=== PATIENT | male | born 1950 | race Caucasian/White ===

== ENCOUNTER 2023-07-01 19:13 | Observation (INO) | payer MEDICARE, OTHER ==
[2023-07-01] MEDS ORDERED: MORPHINE SULFATE 4 MG/ML SYRINGE IVP STA (19:52)
--- NOTE | 2023-07-01 19:57 | ED ---
Chest Pain HPI - General Chief Complaint: Chest Pain Stated Complaint: Chest Pain Time Seen by Provider: 07/01/23 19:16 Source: patient, RN notes reviewed Mode of arrival: EMS Limitations: no limitations - History of Present Illness Initial Comments: This is a 73-year-old male who presents to the emergency department for chest pain. Patient is a transfer to our facility from [facility]. He presented there this afternoon with left-sided chest pain that began yesterday. This is left-sided with a squeezing/tightness sensation. Patient went to work this morning and the episodes seemed to be getting progressively worse, prompting him to go to the emergency department. He has noticed that symptoms seem to worsen with exertion. There are some episodes of numbness to the left arm as well as minor shortness of breath. Denies any history of heart attacks, however he does have nitroglycerin at home that was prescribed for coronary artery disease and spasms. He took this with relief in symptoms. Additionally, he had a cardiac catheterization at [facility] earlier this year that demonstrated coronary artery "narrowing and spasms". He also had a nuclear stress test and echocardiogram done on 02/02/23 at [facility] that had no notable irregularities. He does continue to follow with [facility] cardiology. The providers at [facility] were concerned with the patient's symptoms, age, and history of CAD, and advised he be transferred to a facility with higher level of care for cardiac evaluation. They attempted to transfer the patient to [facility] where he received the cardiac catheterization, however the transfer was declined there due to "lack of capacity" and the patient then requested transfer here. EKG, chest x-ray, and blood work at [facility] did not demonstrate any notable findings. Patient is not currently taking any blood thinners. He did have nitropaste applied before leaving [facility] at 1710, which the patient states was helpful. MD Complaint: chest pain - Related Data Home Medications Medication Instructions Recorded Confirmed Aspirin EC [Ecotrin Low Dose] 81 mg PO DAILY 07/01/23 07/01/23 Atorvastatin [Lipitor] 20 mg PO DAILY 07/01/23 07/01/23 Isosorbide Mononitrate ER [Imdur] 30 mg PO DAILY 07/01/23 07/01/23 Magnesium Oxide [Mag-Ox] 400 mg PO BID 07/01/23 07/01/23 Metoprolol Tartrate [Lopressor] 50 mg PO BID 07/01/23 07/01/23 Ondansetron Odt [Zofran Odt] 4 mg PO Q8H PRN 07/01/23 07/01/23 glipiZIDE [Glucotrol] 5 mg PO AC-BRKFST 07/01/23 07/01/23 lisinopriL [Zestril] 20 mg PO BID 07/01/23 07/01/23 Allergies Allergy/AdvReac Type Severity Reaction Status Date / Time No Known Allergies Allergy Unverified 07/01/23 21:09 Review of Systems ROS Statement: Those systems with pertinent positive or pertinent negative responses have been documented in the HPI. ROS Other: All systems not noted in ROS Statement are negative. General Exam Limitations: no limitations General appearance: alert, in no apparent distress Head exam: Present: atraumatic, normocephalic, normal inspection Respiratory exam: Present: normal lung sounds bilaterally. Absent: respiratory distress, wheezes, rales, rhonchi, stridor Cardiovascular Exam: Present: regular rate, normal rhythm, normal heart sounds. Absent: systolic murmur, diastolic murmur, rubs, gallop, clicks Neurological exam: Present: alert, oriented X3, CN II-XII intact Psychiatric exam: Present: normal affect, normal mood Skin exam: Present: warm, dry, intact, normal color. Absent: rash Chest Pain MDM - MDM This is a 73-year-old male who presents to the emergency department for chest pain. Was pt. sent in by a medical professional or institution? @ -No Did you speak to anyone other than the patient for history? @ -No Did you review nursing and triage notes? @ -Yes, and I agree, it is accurate with regards to the patient's symptoms. Were old charts reviewed? @ -Yes, records sent with the patient from [facility]. This discussed the patient's history, including why he presented there today, his blood work, EKG, and chest x-ray results. Blood work, EKG, and chest x-ray were unremarkable. Differential Diagnosis? @ -Differential Chest Pain: Stable Angina, Unstable Angina, STEMI, NSTEMI Aortic Dissection, Pneumothorax, Musculoskeletal, Esophageal Spasm GERD, Cholecystitis, Pancreatitis, Zoster, this is not meant to be an all-inclusive list. EKG interpreted by me (3pts min.)? @ -EKG interpreted by me demonstrating the following: Sinus rhythm. Ventricular rate 62 bpm, MD interval 192 ms, QRS duration 108 ms, QTC 428 ms. X-rays interpreted by me (1pt min.)? @ -Not obtained CT interpreted by me (1pt min.)? @ -Not obtained U/S interpreted by me (1pt. min.)? @ -Not obtained What testing was considered but not performed? (CT, X-rays, U/S, labs)? Why? @ -None What meds were considered but not given? Why? @ -None Did you discuss the management of the patient with other professionals? @ -Yes, Sharlene Pearl with [facility], who accepts the patient for admission. Did you reconcile home meds? @ -Yes Was smoking cessation discussed for >3mins.? @ -No Was critical care preformed (if so, how long)? @ -No Were there social determinants of health that impacted care today? How? (Homelessness, low income, unemployed, alcoholism, drug addiction, transportation, low edu. Level, literacy, decrease access to med. care, half-way, rehab)? @ -No Was there de-escalation of care discussed even if they declined? (Discuss DNR or withdrawal of care, Hospice)? @ -No What co-morbidities impacted this encounter? (DM, HTN, Smoking, COPD, CAD, Cancer, CVA, Hep., AIDS, mental health diagnosis, sleep apnea, morbid obesity)? @ -CAD, DM, HLD, HTN Was patient admitted / discharged? @ -Admitted. I did repeat blood work here, including cardiac enzymes. Troponin was found to be negative. Patient did have nitro paste on, which was applied shortly prior to arrival from [facility]. He did find that this was controlling his chest pain well. All outside records, including blood work, chest x-ray, EKG, and documentation were reviewed. Blood work, EKG, and chest x-ray were unremarkable. Repeat EKG obtained here as well revealing no ST segment elevations or depressions. His heart score is approximately 6. Patient was admitted to medicine for further evaluation of chest pain and ACS rule out. Consult placed for cardiology. Undiagnosed new problem with uncertain prognosis? @ -None Drug Therapy requiring intensive monitoring for toxicity (Heparin, Nitro, Insulin, Cardizem)? @ -None Were any procedures done? @ -None Diagnosis/symptom? @ -Chest pain Acute, or Chronic, or Acute on Chronic? @ -Acute Uncomplicated (without systemic symptoms) or Complicated (systemic symptoms)? @ -Uncomplicated Side effects of treatment? @ -None Exacerbation, Progression, or Severe Exacerbation] @ -Not applicable Poses a threat to life or bodily function? @ -Yes This case was discussed in detail with the attending ED physician, Dr. Gonzalez. Presentation, findings, and treatment plan discussed in detail as well. Disposition Clinical Impression: Chest pain Disposition: ADMITTED IP TO THIS HOSP
[2023-07-01 20:34] LABS: Glucose,Whole Blood 96 mg/dL (70-110)
[2023-07-01] MEDS ORDERED: MORPHINE SULFATE 4 MG/ML SYRINGE IV PRN (21:18)
[2023-07-01] MEDS ORDERED: ONDANSETRON 4 MG/2 ML VIAL IVP PRN (21:18)
[2023-07-01] MEDS ORDERED: ACETAMINOPHEN TAB 325 MG TAB PO PRN (21:18)
[2023-07-01] MEDS ORDERED: HYDROcodone/APAP 5-325MG 1 EACH TAB PO PRN (21:18)
[2023-07-01] MEDS ORDERED: NALOXONE 0.4 MG/ML 1 ML VIAL IV PRN (21:18)
[2023-07-01] MEDS ORDERED: ONDANSETRON ODT 4 MG TAB PO PRN (21:20)
[2023-07-01 23:08] VITALS: RESP 16
[2023-07-02 00:43] LABS: Basophils % (A) 1 %; Eosinophils # (A) 0.2 k/uL (0-0.7); Eosinophils % (A) 3 %; HCT 44.4 % (39.0-53.0); HGB 14.5 gm/dL (13.0-17.5); Lymphocytes # (A) 2.3 k/uL (1.0-4.8); Lymphocytes % (A) 41 %; MCH 28.7 pg (25.0-35.0); MCHC 32.7 g/dL (31.0-37.0); MCV 87.8 fL (80.0-100.0); Monocytes # (A) 0.3 k/uL (0-1.0); Monocytes % (A) 6 %; Neutrophils # (A) 2.7 k/uL (1.3-7.7); Neutrophils % (A) 49 %; Platelet Count 180 k/uL (150-450); RBC 5.06 m/uL (4.30-5.90); RDW 14.6 % (11.5-15.5); WBC 5.6 k/uL (3.8-10.6)
[2023-07-02 02:14] LABS: INR 1.1 (<1.2); Partial Thromboplastin Time 23.6 sec (22.0-30.0); Prothrombin Time 11.6 sec (10.0-12.5)
[2023-07-02] MEDS ORDERED: glipiZIDE 5 MG TAB PO SCH (07:30)
[2023-07-02 08:08] LABS: Glucose,Whole Blood 114 mg/dL (70-110)
[2023-07-02 08:45] VITALS: PULSE 79; TEMP 98.2
[2023-07-02] MEDS ORDERED: ATORVASTATIN 20 MG TAB PO SCH (09:00)
[2023-07-02] MEDS ORDERED: ISOSORBIDE MONONITRATE ER 30 MG TAB.ER.24H PO SCH (09:00)
[2023-07-02] MEDS ORDERED: MAGNESIUM OXIDE 400 MG TAB PO SCH (09:00)
[2023-07-02] MEDS ORDERED: lisinopriL 20 MG TAB PO SCH (09:00)
[2023-07-02] MEDS ORDERED: METOPROLOL TARTRATE 50 MG TAB PO SCH (09:00)
[2023-07-02] MEDS ORDERED: ASPIRIN 81 MG PO SCH (09:00)
--- NOTE | 2023-07-02 09:10 | P.HPIM ---
History of Present Illness Patient is a pleasant 73-year-old male came in with complaints of chest pressure-like sensation moderate severity which improved now. The pain radiates to the left arm denied any diaphoresis nausea lightheadedness chest pain is not associated with deep breathing or coughing. Patient had cardiac catheterization at [facility] earlier this year which demonstrative coronary vasospasm patient also had a stress test earlier this year. Cardiac catheterization reports are not available from the hospital at this time chest x-ray did not show any significant abnormality troponins are negative. Patient has mildly elevated creatinine and although patient was told has stage III chronic kidney disease, with mild hyponatremia is a possibility of for dehydration and acute renal failure because of which I'm starting him on IV fluids until his discharge. Patient is on Imdur 30 mg along with lisinopril, beta elen and a statin. REVIEW OF SYSTEMS: CONSTITUTIONAL: No fever, no malaise, no fatigue. HEENT: No recent visual problems or hearing problems. Denied any sore throat. CARDIOVASCULAR: No orthopnea, PND, no palpitations, no syncope. PULMONARY: No shortness of breath, no cough, no hemoptysis. GASTROINTESTINAL: No diarrhea, no nausea, no vomiting, no abdominal pain. NEUROLOGICAL: No headaches, no weakness, no numbness. HEMATOLOGICAL: Denies any bleeding or petechiae. GENITOURINARY: Denies any burning micturition, frequency, or urgency. MUSCULOSKELETAL/RHEUMATOLOGICAL: Denies any joint pain, swelling, or any muscle pain. ENDOCRINE: Denies any polyuria or polydipsia. The rest of the 14-point review of systems is negative. PHYSICAL EXAMINATION: GENERAL: The patient is alert and oriented x3, not in any acute distress. Obese HEENT: Pupils are round and equally reacting to light. EOMI. No scleral icterus. No conjunctival pallor. Normocephalic, atraumatic. No pharyngeal erythema. No thyromegaly. CARDIOVASCULAR: S1 and S2 present. No murmurs, rubs, or gallops. PULMONARY: Chest is clear to auscultation, no wheezing or crackles. ABDOMEN: Soft, nontender, nondistended, normoactive bowel sounds. No palpable organomegaly. MUSCULOSKELETAL: No joint swelling or deformity. EXTREMITIES: No cyanosis, clubbing, or pedal edema. NEUROLOGICAL: Gross neurological examination did not reveal any focal deficits. SKIN: No rashes. Assessment and plan -Chest pressure: Possibly vasospastic angina had a recent cardiac catheterization, patient may need titration of imdur or addition of calcium channel elen possibly can be discharged if cleared by cardiology today. Patient denied any CHF history doesn't take any diuretics at home -Chronic kidney disease stage III possible diabetic nephropathy, may have a mild acute renal failure patient was started on IV fluids. -Type 2 diabetes mellitus: Resume home medications -Hypertension -Hyperlipidemia If cleared by cardiology patient will be discharged today Past Medical History Past Medical History: Chest Pain / Angina, Diabetes Mellitus, Hypertension History of Any Multi-Drug Resistant Organisms: None Reported Past Surgical History: Bladder Surgery Past Psychological History: No Psychological Hx Reported Smoking Status: Former smoker Past Alcohol Use History: None Reported Past Drug Use History: None Reported Medications and Allergies Home Medications Medication Instructions Recorded Confirmed Type Aspirin EC [Ecotrin Low Dose] 81 mg PO DAILY 07/01/23 07/01/23 History Atorvastatin [Lipitor] 20 mg PO DAILY 07/01/23 07/01/23 History Isosorbide Mononitrate ER [Imdur] 30 mg PO DAILY 07/01/23 07/01/23 History Magnesium Oxide [Mag-Ox] 400 mg PO BID 07/01/23 07/01/23 History Metoprolol Tartrate [Lopressor] 50 mg PO BID 07/01/23 07/01/23 History Ondansetron Odt [Zofran ODT] 4 mg PO Q8H PRN 07/01/23 07/01/23 History glipiZIDE [Glucotrol] 5 mg PO AC-BRKFST 07/01/23 07/01/23 History lisinopriL [Zestril] 20 mg PO BID 07/01/23 07/01/23 History Allergies Allergy/AdvReac Type Severity Reaction Status Date / Time No Known Allergies Allergy Unverified 07/01/23 21:09 Physical Exam Vitals: Vital Signs Temp Pulse Resp BP Pulse Ox 07/02/23 07:45 98.2 F 79 16 169/87 97 07/02/23 00:50 97.5 F L 72 16 131/76 97 07/01/23 22:58 97.9 F 65 16 167/75 97 Intake and Output 10/21/23 10/22/23 10/22/23 22:59 06:59 14:59 Other: Voiding Method Toilet # Voids 1 Weight 235 kg Results CBC & Chem 7: 07/01/23 23:35 07/01/23 00:00 Labs: Abnormal Lab Results - Last 24 Hours (Table) 07/01/23 07/02/23 Range/Units 00:00 08:00 Sodium 136 L (137-145) mmol/L BUN 35 H (9-20) mg/dL Glucose 173 H (74-99) mg/dL POC Glucose (mg/dL) 114 H (70-110) mg/dL Total Protein 6.2 L (6.3-8.2) g/dL
[2023-07-02 10:52] VITALS: BP 164/87
[2023-07-02 11:46] LABS: Glucose,Whole Blood 100 mg/dL (70-110)
[2023-07-02] MEDS ORDERED: amLODIPine 5 MG TAB PO SCH (14:45)
--- NOTE | 2023-07-02 14:45 | P.CRDCN ---
History of Present Illness Consult date: 07/02/23 History of present illness: HISTORY OF PRESENTING ILLNESS Patient is a 73-year-old male who follows up with product technician at [facility] in [place]. In February 2023 had a heart catheterization which did not show any significant obstructive coronary artery disease. Patient lives in [place]. This time he initially presented to [facility] with substernal chest pain. His pain slightly got better with sublingual nitroglycerin at [facility] due to which she was sent to [facility]. On admission he ECG does not show any significant ST-T wave changes that were diagnostic for ischemia. He is normal sinus rhythm. His labs were essentially within normal limits. His 3 troponins have been negative. His noticed to be hypertensive. On today's review of history patient reported that he has been hypertensive lately. He is scheduled to see his product technician in July 12 week. REVIEW OF SYSTEMS 14 point review of system is negative except what is mentioned above in HPI. PHYSICAL EXAMINATION Vital signs reviewed. Head: Normocephalic. Eyes: Sclerae nonicteric. Neck: Brisk carotid upstroke, no jugular venous distention. Lungs: Clear to auscultation. Heart: Regular rate and rhythm, S1-S2, no S3, no murmur or rub. Abdomen: Soft nontender, positive bowel sounds no organomegaly. Extremities: No edema, intact distal pulses. Neuro: Alert, oritented, no focal deficits ASSESSMENT Stable angina No evidence of acute coronary syndrome Mild nonobstructive coronary artery disease Essential hypertension next and dyslipidemia Obesity PLAN Continue aspirin 81 mg, metoprolol 50 mg twice a day Increase atorvastatin 40 mg daily Continue lisinopril 20 mg twice a day Continue Imdur 30 mg daily Add amlodipine 5 mg daily for better blood pressure control Follow-up with his product technician since her to be discharged from cardiac [facility] Past Medical History Past Medical History: Chest Pain / Angina, Diabetes Mellitus, Hypertension History of Any Multi-Drug Resistant Organisms: None Reported Past Surgical History: Bladder Surgery Past Psychological History: No Psychological Hx Reported Smoking Status: Former smoker Past Alcohol Use History: None Reported Past Drug Use History: None Reported Medications and Allergies Home Medications Medication Instructions Recorded Confirmed Type Aspirin EC [Ecotrin Low Dose] 81 mg PO DAILY 07/01/23 07/01/23 History Atorvastatin [Lipitor] 20 mg PO DAILY 07/01/23 07/01/23 History Isosorbide Mononitrate ER [Imdur] 30 mg PO DAILY 07/01/23 07/01/23 History Magnesium Oxide [Mag-Ox] 400 mg PO BID 07/01/23 07/01/23 History Metoprolol Tartrate [Lopressor] 50 mg PO BID 07/01/23 07/01/23 History Ondansetron Odt [Zofran ODT] 4 mg PO Q8H PRN 07/01/23 07/01/23 History glipiZIDE [Glucotrol] 5 mg PO AC-BRKFST 07/01/23 07/01/23 History lisinopriL [Zestril] 20 mg PO BID 07/01/23 07/01/23 History Allergies Allergy/AdvReac Type Severity Reaction Status Date / Time No Known Allergies Allergy Unverified 07/01/23 21:09 Physical Exam Vitals: Vital Signs Temp Pulse Resp BP Pulse Ox 07/02/23 10:36 164/87 07/02/23 08:00 79 16 07/02/23 07:45 98.2 F 79 16 169/87 97 07/02/23 00:50 97.5 F L 72 16 131/76 97 07/01/23 22:58 97.9 F 65 16 167/75 97 Intake and Output 07/01/23 07/02/23 07/02/23 22:59 06:59 14:59 Other: Voiding Method Toilet # Voids 1 Weight 235 kg Results 07/01/23 23:35 07/01/23 00:00 Cardiac Enzymes 07/01/23 07/01/23 07/02/23 Range/Units 00:00 23:35 02:04 AST 23 (17-59) U/L Troponin I <0.012 <0.012 (0.000-0.034) ng/mL 07/02/23 Range/Units 05:41 AST (17-59) U/L Troponin I <0.012 (0.000-0.034) ng/mL Coagulation 07/01/23 Range/Units 23:35 PT 11.6 (10.0-12.5) sec APTT 23.6 (22.0-30.0) sec CBC 07/01/23 Range/Units 23:35 WBC 5.6 (3.8-10.6) k/uL RBC 5.06 (4.30-5.90) m/uL Hgb 14.5 (13.0-17.5) gm/dL Hct 44.4 (39.0-53.0) % Plt Count 180 (150-450) k/uL Comprehensive Metabolic Panel 07/01/23 Range/Units 00:00 Sodium 136 L (137-145) mmol/L Potassium 4.4 (3.5-5.1) mmol/L Chloride 103 (98-107) mmol/L Carbon Dioxide 25 (22-30) mmol/L BUN 35 H (9-20) mg/dL Creatinine 1.20 (0.66-1.25) mg/dL Glucose 173 H (74-99) mg/dL Calcium 9.4 (8.4-10.2) mg/dL AST 23 (17-59) U/L ALT 20 (4-49) U/L Alkaline Phosphatase 57 (38-126) U/L Total Protein 6.2 L (6.3-8.2) g/dL Albumin 3.5 (3.5-5.0) g/dL Current Medications Generic Name Dose Route Start Last Admin Trade Name Freq PRN Reason Stop Dose Admin Acetaminophen 650 mg 07/01/23 21:18 Acetaminophen Tab 325 Mg Tab PO Q6HR PRN Mild Pain or Fever > 100.5 Hydrocodone Bitart/Acetaminophen 1 each 07/01/23 21:18 Hydrocodone/Apap 5-325mg 1 Each Tab PO Q4HR PRN Moderate Pain (Scale 4 to 6) Aspirin 81 mg 07/02/23 09:00 07/02/23 09:24 Aspirin 81 Mg PO 81 mg DAILY FRANCHESKA Administration Atorvastatin Calcium 20 mg 07/02/23 09:00 07/02/23 09:24 Atorvastatin 20 Mg Tab PO 20 mg DAILY FRANCHESKA Administration Glipizide 5 mg 07/02/23 07:30 07/02/23 13:23 Glipizide 5 Mg Tab PO 5 mg AC-BRKFST FRANCHESKA Administration Isosorbide Mononitrate 30 mg 07/02/23 09:00 07/02/23 09:24 Isosorbide Mononitrate Er 30 Mg Tab.Er.24h PO 30 mg DAILY FRANCHESKA Administration Lisinopril 20 mg 07/02/23 09:00 07/02/23 09:24 Lisinopril 20 Mg Tab PO 20 mg BID FRANCHESKA Administration Magnesium Oxide 400 mg 07/02/23 09:00 07/02/23 09:24 Magnesium Oxide 400 Mg Tab PO 400 mg BID FRANCHESKA Administration Metoprolol Tartrate 50 mg 07/02/23 09:00 07/02/23 09:24 Metoprolol Tartrate 50 Mg Tab PO 50 mg BID FRANCHESKA Administration Morphine Sulfate 4 mg 07/01/23 21:18 Morphine Sulfate 4 Mg/Ml Syringe IV Q4HR PRN Severe Pain (Scale 7 to 10) Naloxone HCl 0.2 mg 07/01/23 21:18 Naloxone 0.4 Mg/Ml 1 Ml Vial IV Q2M PRN Opioid Reversal Ondansetron HCl 4 mg 07/01/23 21:18 Ondansetron 4 Mg/2 Ml Vial IVP Q8HR PRN Nausea And Vomiting Ondansetron HCl 4 mg 07/01/23 21:20 Ondansetron Odt 4 Mg Tab PO Q8H PRN Nausea And Vomiting Intake and Output 07/01/23 07/02/23 07/02/23 22:59 06:59 14:59 Other: Voiding Method Toilet # Voids 1 Weight 235 kg 07/01/23 23:35 07/01/23 00:00
== END 2023-07-02 14:55 | disposition home or self-care (01) ==
LOC: EC 19:13 → 6NMEDSUR 21:18
PROVIDERS: ADMIT Hospitalist; ATTEND Hospitalist
DX: I25.118 Atherosclerotic heart disease of native coronary artery with other forms of angina pectoris (principal); I12.9 Hypertensive chronic kidney disease with stage 1 through stage 4 chronic kidney disease, or unspecified chronic kidney disease; E11.22 Type 2 diabetes mellitus with diabetic chronic kidney disease; E87.1 Hypo-osmolality and hyponatremia; E78.5 Hyperlipidemia, unspecified; E66.9 Obesity, unspecified; Z68.45 Body mass index [BMI] 70 or greater, adult; N18.30 Chronic kidney disease, stage 3 unspecified; Z79.82 Long term (current) use of aspirin; Z79.84 Long term (current) use of oral hypoglycemic drugs; Z79.899 Other long term (current) drug therapy; Z87.891 Personal history of nicotine dependence
CPT/HCPCS: 99285; 36415; 93005; 80053; 84484 ×2; 85025; 85610; 85730; G0378 ×2